=== PATIENT | female | born 1940 | race Caucasian/White ===

== ENCOUNTER 2016-10-29 06:25 | Outpatient (CLI) ==
[2013-01-05 11:30] VITALS: BMI 26.5
--- NOTE | 2016-10-30 13:42 | ECHO2D ---
Date of Exam: 10/29/16 Ordering Physician: MUSA FREIRE Reason for Echo: DYSPNEA, EDEMA M-Mode Normal Adult Results LV Dimensions Normal Adult Results AoV Opening excursions >1.6 >1.6 LVEDD-base- 3.5-5.8 4.3 Ao root dimensions 2.0-3.7 3.2 LVESD-base- 3.1-4.6 L. Atrium dimensions 1.9-3.8 3.9 Post. Wall thickness 0.8-1.1 1.1 IV septum (thickness) 0.7-1.2 1.1 Post. Wall excursion 0.72-1.3 NORMAL Septal motion NORMAL Systolic motion R. Ventricular cavity 1.5-2.0 NORMAL LVEF 60% 58% Paradoxical septal wall motion NORMAL 2-D : 2-D M Mode Echocardiogram was performed using apical four chamber and left parasternal long and short axis views. Mitral, tricuspid and aortic valves appear to be normal. Contractility of the left ventricle seems to be normal, so is the cavity size. Left atrial cavity size and aortic root appear to be normal. There is no pericardial effusion. There is no thrombus noted in the left ventricular or left aortic cavity. No mitral valve prolapse noted. M-MODE: MV: NORMAL AV: NORMAL TV: NORMAL PV: CHAMBER SIZE: NORMAL WALL MOTION: NORMAL PERICARDIUM: NORMAL INTERPRETATION: 1. NORMAL 2 "D" "M" MODE ECHO MTDD
== END 2016-10-29 06:26 | disposition home or self-care (01) ==
LOC: CAR 06:25
PROVIDERS: ATTEND Family Medicine
DX: R60.1 Generalized edema (principal)

== ENCOUNTER 2017-04-18 10:26 | Outpatient (CLI) ==
[2013-01-05 11:30] VITALS: BMI 26.5
--- NOTE | 2017-04-18 11:46 | CT ---
EXAM: CT chest without contrast. HISTORY: Lung scarring. Follow-up. COMPARISON: 05/01/2016, 04/19/2015, 09/28/2013, 01/11/2013. TECHNIQUE: Multiple axial images of the chest were obtained without intravenous contrast. Images we re reformatted in the sagittal and coronal planes. FINDINGS: Evaluation for lymphadenopathy is limited by lack of intravenous contrast. Calcified medi astinal and right hilar lymph nodes are present. Heart size is normal. Atherosclerotic calcificatio ns present. There is no pericardial effusion. A 0.9 cm suprasellar the right lower lobe nodule on axial image 22 is stable. Other right and left [place] ng nodules measuring up to 1.4 x 0.7 cm on axial image 16 in the right upper lobe are also stable sin ce 04/19/2015. No consolidation, pleural effusion or pneumothorax identified. Limited images of the upper abdomen demonstrate no acute abnormality. Left nephrolithiasis noted. M ultilevel thoracic vertebral compression deformities noted. Laminectomy changes from T8 through T10 again noted. IMPRESSION: Stable nodular densities since 2014 which can be considered benign. No acute abnormality of the ches t.
== END 2017-04-18 10:27 | disposition home or self-care (01) ==
LOC: RAD 10:26
PROVIDERS: ATTEND Internal Medicine Pulmonary Disease
DX: J98.4 Other disorders of lung (principal)

== ENCOUNTER 2017-04-24 09:20 | Outpatient (CLI) ==
[2017-04-24 11:05] VITALS: BMI 31.0
== END 2017-04-24 09:21 | disposition home or self-care (01) ==
LOC: DIETCN 09:20
PROVIDERS: ATTEND Family Medicine
DX: E11.9 Type 2 diabetes mellitus without complications (principal)
CPT/HCPCS: 97802